=== PATIENT | female | born 1995 | race Caucasian/White ===

== ENCOUNTER → 2016-11-13 00:49 | Observation (INO) ==
[~2016-11-13 00:49] MED LIST: Rho Immune Globulin 1,500 UNIT SYRINGE IM ONE
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
== END | disposition home or self-care (01) ==
LOC: 1NENULAB
PROVIDERS: ADMIT Student in an Organized Health Care Education/Training Program; ATTEND Student in an Organized Health Care Education/Training Program

== ENCOUNTER 2017-03-09 06:00 | Inpatient (IN) ==
[2017-03-09] MEDS ORDERED: Famotidine 20 MG/2 ML VIAL IVP PRN (06:11)
[2017-03-09] MEDS ORDERED: Metoclopramide 10 MG/2 ML VIAL IVP PRN (06:11)
[2017-03-09] MEDS ORDERED: miSOPROStol 25 MCG TABLET PO ONE (06:14)
[2017-03-09] MEDS ORDERED: Ringers Solution, Lactated 1,000 ML IVC SCH (06:15)
[2017-03-09] MEDS ORDERED: *HR* Nalbuphine 20 MG/ML AMPUL IVP PRN (06:18)
[2017-03-09 06:49] LABS: Alanine Aminotransferase 16 Units/L (0-55); Aspartate Amino Transferase 16 Units/L (5-34); BUN/Creatinine Ratio 14 (6-26); Blood Urea Nitrogen 10 mg/dL (7-20); Lactate Dehydrogenase 122 Units/L (159-327); Uric Acid 3.7 mg/dL (2.6-6.0); eGFR For African Americans > 60 (> 60); eGFR For Non-African Americans > 60 (> 60)
[2017-03-09 07:05] LABS: Basophils % 0.3 %; Eosinophils % 0.3 %; Hematocrit 30.8 % (35.3-44.9); Hemoglobin 9.5 g/dL (11.5-15.4); Immature Granulocytes % 0.8 % (0-4); Lymphocytes # 1.5 K/mcL (0.6-4.6); Lymphocytes % 19.2 %; Mean Corpuscular HGB Conc 30.8 g/dL (31.6-35.5); Mean Corpuscular Hemoglobin 26.5 pg (28.0-33.3); Monocytes # 0.8 K/mcL (0.0-1.3); Monocytes % 9.9 %; Neutrophils # 5.3 K/mcL (1.6-8.9); Platelet Count 197 K/mcL (140-400); Red Blood Count 3.58 M/mcL (3.82-4.97); Segmented Neutrophils % 69.5 %
--- NOTE | 2017-03-09 11:02 | OB/GYN History & Physical ---
Date of Encounter: 03/09/17 Time of Encounter: 10:58 Assessment and Plan (1) 38 weeks gestation of Current visit: Yes Status: Acute (2) Gestational hypertension Current visit: Yes Status: Acute Induction of labor with Cytotec on admission, just placed cervical Santos clear liquid diet Nubain and epidural as desired Anticipate Qualifiers: Trimester: third trimester Qualified Code(s): O13.3 - Gestational [ -induced] hypertension without significant proteinuria, third trimester History of Present Illness Chief complaint: induction of labor due to GHTN HPI: Ms. King is a 21 year old female at 38 weeks gestation presents for induction of labor for gestational hypertension. uncomplicated except for gestational hypertension controlled with labetalol. Patient reports good movement and denies vaginal bleeding, leaking of fluid, headache, epigastric pain, or visual changes. Labs: B-, rubella immune, all other serologies negative Past Med Surg Social Fam HX - Past Medical History Medical history: non-contributory Psychiatric history: no psych history - Past Surgical History Surgical History: no surgical history - Social History Smoking Status: Never smoker Smokeless Tobacco Status: No Alcohol use: none Drug use: none - Family History Father Family Member Ethnicity: Non- Living Status: Still Living Hx Family Cardiac Disorders: Yes (HTN) Obstetrical History - Pregnancies : 1 Para: 0 Term: 0 : 0 Ab's: 0 Livin Medications and Allergies Caplet 1 tab PO DAILY 11/01/16 [History] Labetalol [Trandate] 1 tab PO BID 03/09/17 [History] Allergies No Known Allergies Allergy (Verified 02/09/16 18:43) Exam - Constitutional Constitutional: well developed, well nourished, no acute distress - Neck Neck exam: full ROM - Lungs Respiratory exam: CTAB - Cardiovascular Cardiovascular exam: RRR, +S1, +S2 - Breasts Breast: bilateral: normal - Abdomen Abdomen: Present: bowel sounds normal, gravid, non tender - Extremities Extremities exam: normal inspection - Vulva Vulva: left: normal - Vagina Vagina: Present: normal moisture - Cervix Dilation: 2 Effacement: 50 Station: -2 - Uterus Uterus exam: Present: normal size, normal contour Results Result Diagrams: 03/09/17 06:25 03/09/17 06:25 Abnormal lab results RBC 3.58 M/mcL (3.82-4.97) L 03/09/17 06:25 Hgb 9.5 g/dL (11.5-15.4) L 03/09/17 06:25 Hct 30.8 % (35.3-44.9) L 03/09/17 06:25 MCH 26.5 pg (28.0-33.3) L 03/09/17 06:25 MCHC 30.8 g/dL (31.6-35.5) L 03/09/17 06:25 MPV 13.0 fL (9.4-12.4) H 03/09/17 06:25 Lactate Dehydrogenase 122 Units/L (159-327) L 03/09/17 06:25 All other labs normal. - VTE Reasons for not Prescribing Prophylaxis: Treatment not Indicated - Low risk for VTE
[2017-03-09] MEDS ORDERED: Oxytocin 20 units/ LR 1000 mL 20 UNIT/1,000 ML BAG IVC SCH ×2 (15:00→22:24)
--- NOTE | 2017-03-09 15:08 | OB Labor Progress Note ---
Date of Encounter: 03/09/17 Time of Encounter: 15:06 Labor Progress Note - Subjective Subjective: Patient resting comfortably in bed states feels occasional contractions - Cervix Cervix: 4/50/-2 - Heart Tones Heart Tones: Baseline 135/moderate variability/ - Interventions Interventions: AROM for clear fluid Start Pitocin - Plan Plan: Continue induction of labor Start Pitocin per policy Nubain and epidural as needed Anticipate
--- NOTE | 2017-03-09 16:54 | OB Labor Progress Note ---
Date of Encounter: 03/09/17 Time of Encounter: 16:54 Labor Progress Note - Subjective Subjective: Patient states feeling more contractions now rating pain at 3 - Cervix Cervix: 4/50/-2 copious amounts of clear fluid - Interventions Interventions: IUPC placed without difficulty - Plan Plan: As Pitocin if contractions inadequate Clear liquid diet Epidural and Nubain if desired Anticipate
[2017-03-09] MEDS: *HR* Nalbuphine 20 MG/ML AMPUL IVP PRN ×2 (18:07→20:57)
[2017-03-09] MEDS ORDERED: Lidocaine 1% 20 ML MDV ONE (21:14)
--- NOTE | 2017-03-09 22:13 | OB/GYN Procedure Note ---
Delivery - Delivery Date: 03/09/17 Provider: Vee Drew Intrapartum events: none Delivery induction: AROM, alfonso, misoprostol Delivery augmentation: pitocin Delivery monitor: external FHT, internal uterine Anesthesia: intravenous Estimated Blood Loss: 300 - (s) A Delivery Date: 03/09/17 Delivery Time: 21:39 Presentation: vertex Position: DANYA Route of delivery: Gender: Male Viability: Viable Pounds: 6 Ounces: 12 Weight Gram: 3050 kg at 1 minute: 8 at 5 mins: 9 Shoulder Dystocia: not encountered Specimens collected: cord blood Placenta: spontaneous Cord: 3 umbilical vessels - Repair Episiotomy: none Laceration Description: Periurethral - Complications Delivery complications: none Delivery comments: Pt with gestational HTN presented for IOL at 38 weeks. She progressed normally to over intact perineum for viable male weighing 6lbs 12oz and apgars 8 at one minute and 9 at five minutes. After pulsations ceased the cord was clamped and cut and the placenta delivered spontaneous and intact. A periurethral laceration was repaired using 3-0 chromic. EBL 300. Mother and baby stable in kangaroo care following delivery. - Disposition Mom disposition: stable in LDR disposition: stable in LDR
[2017-03-09] MEDS ORDERED: Acetaminophen 325 MG TABLET PO PRN (22:24)
[2017-03-09] MEDS ORDERED: Lanolin 7 G OINT...G. TP PRN (22:24)
[2017-03-09] MEDS ORDERED: Ibuprofen 600 MG TABLET PO PRN (22:24)
[2017-03-09] MEDS ORDERED: Benzocaine/Menthol 56 GM AEROSOL SPRAY TP PRN (22:24)
[2017-03-09] MEDS ORDERED: Measles/Mumps/Rubella Vacc 0.5 ML VIAL SQ PRN (22:24)
[2017-03-09] MEDS ORDERED: Rho Immune Globulin 1,500 UNIT SYRINGE IM PRN (22:24)
[2017-03-10 05:22] LABS: Basophils % 0.1 %; Hematocrit 28.7 % (35.3-44.9); Immature Granulocytes % 1.6 % (0-4); Immature Platelets 18.8 % (1.1-6.1); Lymphocytes # 1.1 K/mcL (0.6-4.6); Lymphocytes % 5.8 %; Mean Corpuscular HGB Conc 31.4 g/dL (31.6-35.5); Mean Corpuscular Hemoglobin 26.5 pg (28.0-33.3); Mean Corpuscular Volume 84.4 fL (83.0-100.0); Mean Platelet Volume 12.9 fL (9.4-12.4); Monocytes # 1.1 K/mcL (0.0-1.3); Monocytes % 5.8 %; Platelet Count 201 K/mcL (140-400); Red Cell Distribution Width 14.3 % (11.5-14.5); Segmented Neutrophils % 86.7 %
[2017-03-10] MEDS: Prenatal Vit/FA 1 EACH TABLET PO SCH (08:11)
--- NOTE | 2017-03-10 08:19 | OB/GYN Progress Note ---
Date of Encounter: 03/10/17 Time of Encounter: 08:16 - Assessment and Plan (1) Vaginal delivery Current Visit: Yes Status: Acute Continue routine care possible discharge home tomorrow (2) Breast feeding status of mother Current Visit: Yes Status: Acute support prn (3) Leukocytosis Current Visit: Yes Status: Acute Repeat cbc in am low grade temp of 100.1 will give tylenol. If temp continues to elevate will start ATB regimen Qualifiers: Leukocytosis type: unspecified Qualified Code(s): D72.829 - Elevated white blood cell count, unspecified Subjective - Subjective Principal diagnosis: day 1 Interval history: Patient sitting up in bed holding . Patient denies any pain, headache, dizziness or blurred vision. Patient reports light lochia without blood clots. Patient reports: appetite normal, voiding normally, pain well controlled, ambulating normally [place]: doing well, nursing well Objective - Latest Vital Signs Latest vital signs: Vital Signs Temp Pulse Resp BP Pulse Ox 03/10/17 07:30 100.1 F H 99 16 145/74 03/10/17 02:35 98.6 F 85 16 128/75 98 03/10/17 01:50 98.5 F 80 20 133/79 98 03/10/17 00:45 97.8 F 70 16 139/92 99 Intake and Output 03/09/17 03/10/17 03/10/17 23:59 07:59 15:59 Intake Total 200 / 200 Output Total 1150 / 1150 Balance -950 / -950 Intake: Oral 200 / 200 Output: Urine 1150 / 1150 Other: Weight 80.3 kg Patient Weight 03/10/17 23:59 Weight 80.3 kg - Exam Lungs: bilateral: normal Extremities: Present: normal Abdomen: Present: normal appearance, soft, gravid Uterus: Present: normal, firm Uterus Position: 1 Finger Below Umbilicus, Midline - Labs Labs: Laboratory Results - last 24 hr 03/10/17 04:51 WBC 18.4 H D RBC 3.40 L Hgb 9.0 L Hct 28.7 L MCV 84.4 MCH 26.5 L MCHC 31.4 L RDW 14.3 Plt Count 201 MPV 12.9 H Immature Gran % 1.6 Seg Neutrophils % 86.7 Lymphocytes % 5.8 Monocytes % 5.8 Eosinophils % 0.0 Basophils % 0.1 Neutrophils # 16.0 H Lymphocytes # 1.1 Monocytes # 1.1 Eosinophils # 0.0 Basophils # 0.0 Immature Plt Fraction 18.8 H
[2017-03-11 07:01] LABS: Basophils % 0.2 %; Eosinophils % 0.2 %; Hematocrit 27.7 % (35.3-44.9); Hemoglobin 8.8 g/dL (11.5-15.4); Immature Granulocytes % 0.7 % (0-4); Lymphocytes # 1.8 K/mcL (0.6-4.6); Lymphocytes % 15.7 %; Mean Corpuscular HGB Conc 31.8 g/dL (31.6-35.5); Mean Corpuscular Hemoglobin 27.5 pg (28.0-33.3); Mean Corpuscular Volume 86.6 fL (83.0-100.0); Mean Platelet Volume 12.5 fL (9.4-12.4); Monocytes # 0.8 K/mcL (0.0-1.3); Monocytes % 6.7 %; Neutrophils # 8.5 K/mcL (1.6-8.9); Platelet Count 173 K/mcL (140-400); Red Cell Distribution Width 15.3 % (11.5-14.5); Segmented Neutrophils % 76.5 %
[2017-03-11] MEDS: Prenatal Vit/FA 1 EACH TABLET PO SCH (07:29)
--- NOTE | 2017-03-11 09:26 | Discharge Summary ---
Date of Encounter: 03/11/17 Time of Encounter: 09:23 - Discharge Diagnosis (1) Vaginal delivery Priority: Primary Status: Acute Comments: continue routine care discharge home today follow up in 1 week for BP check follow up in 4-6 weeks with CNM (2) Breast feeding status of mother Priority: Secondary Status: Acute Comments: support prn (3) Leukocytosis Priority: Secondary Status: Acute Comments: resolved Qualifiers: Leukocytosis type: unspecified Qualified Code(s): D72.829 - Elevated white blood cell count, unspecified (4) Gestational hypertension Priority: Secondary Status: Acute Comments: Continue labetalol 100mg po BID Nurse visit in 1 week for BP check Qualifiers: Trimester: third trimester Qualified Code(s): O13.3 - Gestational [ -induced] hypertension without significant proteinuria, third trimester - Discharge Medications Prescriptions: Breast Pump [BREAST PUMP] 1 each .ROUTE AD #1 each Home Medications: Caplet 1 tab PO DAILY 11/01/16 [History] Labetalol [Trandate] 1 tab PO BID 03/09/17 [History] Breast Pump [BREAST PUMP] 1 each .ROUTE AD #1 each 03/11/17 [Rx] Ferrous Sulfate 325 mg PO DAILY tablet 03/11/17 [Rx] Labetalol [Trandate] 100 mg PO BID tablet 03/11/17 [Rx] Vit/FA 1 each PO DAILY tablet 03/11/17 [Rx] Allergies/Adverse Reactions: Allergies No Known Allergies Allergy (Verified 02/09/16 18:43) Data Procedures and tests throughout hospitalization: Laboratory Tests 03/09/17 03/09/17 03/09/17 06:25 06:25 21:38 WBC 7.7 RBC 3.58 L Hgb 9.5 L Hct 30.8 L MCV 86.0 MCH 26.5 L MCHC 30.8 L RDW 14.0 Plt Count 197 MPV 13.0 H Immature Gran % 0.8 Seg Neutrophils % 69.5 Lymphocytes % 19.2 Monocytes % 9.9 Eosinophils % 0.3 Basophils % 0.3 Neutrophils # 5.3 Lymphocytes # 1.5 Monocytes # 0.8 Eosinophils # 0.0 Basophils # 0.0 Immature Plt Fraction BUN 10 Creatinine 0.69 Est GFR ( Amer) > 60 Est GFR (Non-Af Amer) > 60 BUN/Creatinine Ratio 14 Uric Acid 3.7 AST 16 ALT 16 Lactate Dehydrogenase 122 L Screen NEGATIVE Baby's Blood Type B RH POSITIVE Mother's Blood Type B RH NEGATIVE Rhogam Indicated YES Rhogam Req for Mother 1 03/10/17 03/11/17 04:51 06:29 WBC 18.4 H D 11.1 RBC 3.40 L 3.20 L Hgb 9.0 L 8.8 L Hct 28.7 L 27.7 L MCV 84.4 86.6 MCH 26.5 L 27.5 L MCHC 31.4 L 31.8 RDW 14.3 15.3 H Plt Count 201 173 MPV 12.9 H 12.5 H Immature Gran % 1.6 0.7 Seg Neutrophils % 86.7 76.5 Lymphocytes % 5.8 15.7 Monocytes % 5.8 6.7 Eosinophils % 0.0 0.2 Basophils % 0.1 0.2 Neutrophils # 16.0 H 8.5 Lymphocytes # 1.1 1.8 Monocytes # 1.1 0.8 Eosinophils # 0.0 0.0 Basophils # 0.0 0.0 Immature Plt Fraction 18.8 H BUN Creatinine Est GFR ( Amer) Est GFR (Non-Af Amer) BUN/Creatinine Ratio Uric Acid AST ALT Lactate Dehydrogenase Screen Baby's Blood Type Mother's Blood Type Rhogam Indicated Rhogam Req for Mother Labs on day of discharge: Labs from last 24 hours 03/11/17 06:29 WBC 11.1 RBC 3.20 L Hgb 8.8 L Hct 27.7 L MCV 86.6 MCH 27.5 L MCHC 31.8 RDW 15.3 H Plt Count 173 MPV 12.5 H Immature Gran % 0.7 Seg Neutrophils % 76.5 Lymphocytes % 15.7 Monocytes % 6.7 Eosinophils % 0.2 Basophils % 0.2 Neutrophils # 8.5 Lymphocytes # 1.8 Monocytes # 0.8 Eosinophils # 0.0 Basophils # 0.0 Date of admission: 03/09/17 06:02 Primary care physician: PCP NO Consults: 03/09/17 22:24 Consult to Marketing Technology Coordinator [CONS] Routine Comment: Vaginal delivery, consult needed Discharging clinician: Lissette Rivera Anticipated date of discharge: 03/11/17 - Patient Status Disposition: Home, Self-Care Condition: Good Functional capacity at discharge: independent ambulation - Discharge Instructions Follow Up With: NO,PCP [Primary Care Provider] - Vee Drew CNM [Non-Partnered Physician] - - Diet and Activity Activity: increase activity as tolerated Diet: regular diet Hospital Course Reason for admission: induction of labor (for gestational HTN) Delivery: Episiotomy: none Other procedures: none complications: none Discharge diagnosis: IUP at term delivered baby: male (breast feeding) Time Attestation: Total time spent providing and/or coordinating discharge services: Time Spent: Less than 30 minutes Exam - Constitutional Vitals: Temp Pulse Resp BP Pulse Ox 98.6 F 104 14 139/86 100 03/10/17 21:02 03/10/17 21:02 03/10/17 21:02 03/10/17 21:02 03/10/17 21:02 General appearance IM: A&O X 3, pleasant, answers questions appropriately - Respiratory Respiratory exam: Present: CTAB - Cardiovascular Cardiovascular exam IM: Present: RRR, +S1, +S2 - GI/Abdominal GI/Abdominal exam IM: normal bowel sounds - Uterine Tone: Firm Uterus Position: 2 Fingers Below Umbilicus, Midline - Extremities Exam Extremities exam IM: Present: full ROM, normal capillary refill, normal inspection - Neurological Exam Neurological exam: alert, oriented X3, reflexes normal
[2017-03-11 12:18] VITALS: BP 130/80
== END 2017-03-11 11:51 | disposition home or self-care (01) | DRG 775 ==
LOC: 1NENULAB 06:02 → 1NENUOBS 03-10 00:56
PROVIDERS: ADMIT Advanced Practice Midwife; ATTEND Advanced Practice Midwife

== ENCOUNTER 2020-08-18 17:22 | Inpatient (IN) ==
[2020-08-18 17:19] LABS: Amphetamine Screen,Urine Negative ng/mL (Cutoff=1000); Barbiturate Screen,Urine Negative ng/mL (Cutoff=200); Benzodiazepines Screen,Urine Negative ng/mL (Cutoff=200); Cannabinoid Screen,Urine Negative ng/mL (Cutoff = 50); Cocaine Screen,Urine Negative ng/mL (Cutoff= 300); Creatinine,Urine 119 mg/dL; Opiate Screen,Urine Negative ng/mL (Cutoff=300); Phencyclidine Screen,Urine Negative ng/mL (Cutoff=25); Protein/Creatinine Ratio,Urine 0.26 mg/mg (0.00-0.20)
[~2020-08-18 17:22] MED LIST changes: +*HR* FentaNYL (PF) 100 MCG/2 ML VIAL IVP PRN; +Famotidine 20 MG/2 ML VIAL IVP PRN; +Metoclopramide 10 MG/2 ML VIAL IVP PRN; +Naloxone 0.4 MG/ML INJ IVP PRN; +Ondansetron 4 MG/2 ML VIAL IVP PRN; +Penicillin G Potassium 5,000,000 UNIT in 0.9 % Sodium Chloride Mini Bag 100 ML IVPB ONE; -Rho Immune Globulin 1,500 UNIT SYRINGE IM ONE; +miSOPROStoL 25 MCG TABLET PO ONE; +miSOPROStoL 25 MCG TABLET VG ONE
[2020-08-18 17:28] LABS: Basophils % 0.1 %; Eosinophils % 0.1 %; Hematocrit 38.8 % (35.3-44.9); Hemoglobin 12.8 g/dL (11.5-15.4); Immature Granulocytes % 0.3 % (0-4); Lymphocytes % 10.6 %; Mean Corpuscular Hemoglobin 29.8 pg (28.0-33.3); Mean Corpuscular Volume 90.2 fL (83.0-100.0); Mean Platelet Volume 11.7 fL (9.4-12.4); Monocytes # 0.7 K/mcL (0.0-1.3); Monocytes % 6.9 %; Platelet Count 200 K/mcL (140-400); Red Cell Distribution Width 13.2 % (11.5-14.5); White Blood Count 9.7 K/mcL (4.3-11.1)
[2020-08-18 17:39] LABS: Alanine Aminotransferase 16 Units/L (7-52); Aspartate Amino Transferase 13 Units/L (13-39); BUN/Creatinine Ratio 20 (6-26); Blood Urea Nitrogen 8 mg/dL (6-20); Lactate Dehydrogenase 77 Units/L (140-271); Uric Acid 2.7 mg/dL (2.3-7.6); eGFR For African Americans > 60 (> 60); eGFR For Non-African Americans > 60 (> 60)
[2020-08-18] MEDS: Penicillin G Potassium 2,500,000 UNIT/105 ML MLS IVPB SCH (21:25)
[2020-08-18] MEDS ORDERED: Oxytocin 20 units/ LR 1000 mL 20 UNIT/1,000 ML BAG IVC SCH (22:15)
[2020-08-18] MEDS ORDERED: Ropivacaine/PF 0.2% 20 ML VIAL EP ONE (22:17)
[2020-08-18] MEDS ORDERED: Ondansetron 4 MG/2 ML VIAL IVP PRN (22:17)
[2020-08-18] MEDS ORDERED: EPHEDrine 50 MG/ML VIAL IVP PRN (22:17)
[2020-08-18] MEDS ORDERED: Naloxone 0.4 MG/ML INJ IVP PRN (22:17)
[2020-08-18] MEDS ORDERED: Epidural Premix (fent/bupiv) 110 ML EP SCH (22:30)
[2020-08-19] MEDS: Penicillin G Potassium 2,500,000 UNIT/105 ML MLS IVPB SCH (02:23)
[2020-08-19] MEDS: Ringers Solution, Lactated 1,000 ML IVC SCH ×2 (02:24→05:03)
[2020-08-19] MEDS ORDERED: *HR* HYDROcodone/Acet 5/325 mg TABLET PO PRN (11:54)
[2020-08-19] MEDS ORDERED: Oxytocin 20 units/ LR 1000 mL 20 UNIT/1,000 ML BAG IVC SCH (11:54)
[2020-08-19] MEDS ORDERED: Lanolin 7 G OINT...G. TP PRN (11:54)
[2020-08-19] MEDS ORDERED: Benzocaine/Menthol 56 GM AEROSOL SPRAY TP PRN (11:54)
[2020-08-19] MEDS ORDERED: Rho Immune Globulin 1,500 UNIT SYRINGE IM PRN (11:54)
[2020-08-19] MEDS: Acetaminophen 325 MG TABLET PO PRN (12:25)
[2020-08-19] MEDS: Prenatal Vit/FA 1 EACH TABLET PO SCH (12:25)
[2020-08-19] MEDS: Ibuprofen 600 MG TABLET PO PRN (17:47)
[2020-08-20] MEDS: Ibuprofen 600 MG TABLET PO PRN (05:54)
[2020-08-20 07:37] VITALS: BP 124/72
[2020-08-20] MEDS: Prenatal Vit/FA 1 EACH TABLET PO SCH (07:58)
[2020-08-20] MEDS: Acetaminophen 325 MG TABLET PO PRN (07:59)
== END 2020-08-20 11:53 | disposition home or self-care (01) | DRG 807 ==
LOC: 1NENULAB → 1NENUOBS 08-19 08:17
PROVIDERS: ADMIT Advanced Practice Midwife; ATTEND Advanced Practice Midwife

== ENCOUNTER 2021-10-26 15:40 | Inpatient (IN) ==
[2021-10-26] MEDS ORDERED: Metoclopramide 10 MG/2 ML VIAL IVP PRN (15:50)
[2021-10-26] MEDS ORDERED: Naloxone 0.4 MG/ML INJ IVP PRN (15:50)
[2021-10-26] MEDS ORDERED: Famotidine 20 MG/2 ML VIAL IVP PRN (15:50)
[2021-10-26] MEDS ORDERED: *HR* Nalbuphine 10 MG/ML AMPUL IV PRN (15:50)
[2021-10-26] MEDS ORDERED: Ondansetron 4 MG/2 ML VIAL IVP PRN (15:50)
[2021-10-26] MEDS ORDERED: Penicillin G Potassium 5,000,000 UNIT in 0.9 % Sodium Chloride Mini Bag 100 ML IVPB ONE (15:58)
[2021-10-26] MEDS ORDERED: Ringers Solution, Lactated 1,000 ML IVC SCH (16:00)
[2021-10-26 16:27] LABS: Basophils % 0.1 %; Eosinophils % 0.3 %; Hematocrit 37.9 % (35.3-44.9); Hemoglobin 12.6 g/dL (11.5-15.4); Immature Granulocytes % 0.4 % (0-4); Lymphocytes # 1.1 K/mcL (0.6-4.6); Lymphocytes % 14.7 %; Mean Corpuscular HGB Conc 33.2 g/dL (31.6-35.5); Mean Corpuscular Hemoglobin 29.8 pg (28.0-33.3); Mean Corpuscular Volume 89.6 fL (83.0-100.0); Mean Platelet Volume 12.4 fL (9.4-12.4); Monocytes # 0.6 K/mcL (0.0-1.3); Monocytes % 7.4 %; Neutrophils # 5.7 K/mcL (1.6-8.9); Platelet Count 188 K/mcL (140-400); Red Blood Count 4.23 M/mcL (3.82-4.97); Red Cell Distribution Width 13.1 % (11.5-14.5); Segmented Neutrophils % 77.1 %; White Blood Count 7.4 K/mcL (4.3-11.1)
[2021-10-26 16:36] LABS: Amphetamine Screen,Urine Negative ng/mL (Cutoff=1000); Barbiturate Screen,Urine Negative ng/mL (Cutoff=200); Benzodiazepines Screen,Urine Negative ng/mL (Cutoff=200); Cannabinoid Screen,Urine Negative ng/mL (Cutoff = 50); Cocaine Screen,Urine Negative ng/mL (Cutoff= 300); Opiate Screen,Urine Negative ng/mL (Cutoff=300); Phencyclidine Screen,Urine Negative ng/mL (Cutoff=25)
[2021-10-26 16:44] LABS: Alanine Aminotransferase 20 Units/L (7-52); Aspartate Amino Transferase 19 Units/L (13-39); BUN/Creatinine Ratio 16 (6-26); Blood Urea Nitrogen 10 mg/dL (6-20); Lactate Dehydrogenase 114 Units/L (140-271); Uric Acid 3.2 mg/dL (2.3-7.6); eGFR For African Americans > 60 (> 60); eGFR For Non-African Americans > 60 (> 60)
[2021-10-26] MEDS ORDERED: EPHEDrine 50 MG/ML VIAL IVP PRN (17:00)
[2021-10-26] MEDS ORDERED: *HR* FentaNYL (PF) 100 MCG/2 ML VIAL EP ONE (17:00)
[2021-10-26] MEDS ORDERED: Epidural Premix (fent/bupiv) 110 ML EP SCH (17:00)
[2021-10-26] MEDS ORDERED: Ropivacaine/PF 0.2% 20 ML VIAL EP ONE (17:00)
[2021-10-26 17:47] LABS: Creatinine,Urine 37 mg/dL
[2021-10-26] MEDS ORDERED: Penicillin G Potassium 2,500,000 UNIT/105 ML MLS IVPB SCH (20:00)
[2021-10-26] MEDS ORDERED: Ropivacaine/PF 0.2% 20 ML VIAL ONE (20:45)
[2021-10-26] MEDS ORDERED: *HR* FentaNYL (PF) 100 MCG/2 ML VIAL ONE (20:45)
[2021-10-27] MEDS ORDERED: Oxytocin 20 units/ LR 1000 mL 20 UNIT/1,000 ML BAG IVC ONE (00:10)
[2021-10-27] MEDS ORDERED: Ondansetron ODT 4 MG TAB.RAPDIS SL PRN (01:08)
[2021-10-27] MEDS ORDERED: Oxytocin 20 units/ LR 1000 mL 20 UNIT/1,000 ML BAG IVC SCH (01:08)
[2021-10-27] MEDS ORDERED: Lanolin 7 G OINT...G. TP PRN (01:08)
[2021-10-27] MEDS ORDERED: Acetaminophen 325 MG TABLET PO SCH (01:08)
[2021-10-27] MEDS ORDERED: Benzocaine/Menthol 56 GM AEROSOL SPRAY TP PRN (01:08)
[2021-10-27] MEDS ORDERED: Rho Immune Globulin 1,500 UNIT SYRINGE IM PRN (01:08)
[2021-10-27] MEDS: Ibuprofen 600 MG TABLET PO SCH ×2 (08:54→21:30)
[2021-10-27] MEDS ORDERED: Prenatal Vit/FA 1 EACH TABLET PO SCH (09:00)
[2021-10-27 15:14] VITALS: O2SAT 98
[2021-10-28 00:39] VITALS: BP 149/95; PULSE 87; TEMP 98.3
== END 2021-10-27 23:40 | disposition home or self-care (01) | DRG 807 ==
LOC: 1NENULAB 15:40 → 1NENUOBS 10-27 00:50
PROVIDERS: ADMIT Advanced Practice Midwife; ATTEND Advanced Practice Midwife